=== PATIENT | female | born 1930 | race Caucasian/White ===

== ENCOUNTER 2017-06-07 22:02 | Emergency (ER) | payer MEDICARE, OTHER ==
[2017-06-07 23:37] LABS: #Eosinphils 0.1 thou/uL (0.0-0.7); #Lymphocytes 2.3 thou/uL (1.20-3.40); #Monocytes 0.6 thou/uL (0.11-0.59); #Neutrophils 3.9 thou/uL (1.40-6.50); %Basophils 0.4 % (0.0-1.0); %Eosinophils 1.3 % (0.0-10.0); %Lymphocytes 33.2 % (21.0-51.0); %Monocytes 8.4 % (0.0-10.0); %Neutrophils 56.8 % (42.0-75.0); Hemoglobin 12.4 g/dL (12.0-16.0); Mean Corpuscular HGB CONC 33.6 g/dL (32.0-36.0); Mean Corpuscular Hemoglobin 31.2 pg (27.0-31.0); Mean Corpuscular Volume 92.9 fl (81.0-99.0); Mean Platelet Volume 8.5 fL (7.4-10.4); Platelet Count 220 thou/uL (130-400); RBC Distribution Width 12.6 % (11.5-14.5); Red Blood Cell (RBC) Count 3.97 mill/uL (4.20-5.40); White Blood Cell (WBC) Count 6.9 thou/uL (4.8-10.8)
[2017-06-07 23:46] LABS: INR-International Normal Ratio 2.3; PTT 40.4 SEC (22.9-36.1)
[2017-06-08] MEDS ORDERED: Oxymetazoline HCl 0.05% ( 15 ML ) ONE (01:30)
[2017-06-08 01:52] LABS: Anion Gap 12 mmol/L (10-20); BUN (Urea Nitrogen) 28 mg/dL (9.8-20.1); Calc. Creatinine Clearance 0 mL/min (70-130); Calcium 10.3 mg/dL (7.8-10.44); Carbon Dioxide 27 mmol/L (23-31); Chloride 107 mmol/L (98-107); Estimated GFR-MDRD 37; Glucose 79 mg/dL (83-110); Potassium 4.3 mmol/L (3.5-5.1); Sodium 142 mmol/L (136-145)
== END 2017-06-08 02:09 | disposition home or self-care (01) ==
LOC: ERS 22:02
DX: R04.0 Epistaxis (principal); I11.0 Hypertensive heart disease with heart failure; I50.9 Heart failure, unspecified; I48.91 Unspecified atrial fibrillation; K21.9 Gastro-esophageal reflux disease without esophagitis; E78.5 Hyperlipidemia, unspecified; M81.0 Age-related osteoporosis without current pathological fracture; F41.9 Anxiety disorder, unspecified; F32.9 Major depressive disorder, single episode, unspecified
CPT/HCPCS: 36415; 80048; 85025; 85610; 85730; 99283

== ENCOUNTER 2018-10-17 18:25 | Emergency (ER) | payer MEDICARE, OTHER ==
--- NOTE | 2018-10-17 19:25 | RAD ---
EXAM: LEFT SHOULDER TWO VIEWS: 10/17/18 HISTORY: Injury from a fall. FINDINGS: There is a minimally comminuted considerably displaced fracture of the femoral neck with foreshorteni ng as well as glenohumeral joint dislocation. IMPRESSION: Comminuted fracture distal humeral head and neck with foreshortening. Evidence for glenohumeral joint dislocation. Bone demineralization. Healed left rib fractures. POS: [facility]
[2018-10-17 19:45] LABS: #Eosinphils 0.1 thou/uL (0.0-0.7); #Lymphocytes 1.5 thou/uL (1.20-3.40); #Monocytes 0.6 thou/uL (0.11-0.59); %Basophils 0.2 % (0.0-1.0); %Eosinophils 0.4 % (0.0-10.0); %Lymphocytes 11.2 % (21.0-51.0); %Monocytes 4.8 % (0.0-10.0); %Neutrophils 83.4 % (42.0-75.0); Hemoglobin 12.2 g/dL (12.0-16.0); Mean Corpuscular HGB CONC 34.8 g/dL (32.0-36.0); Mean Corpuscular Hemoglobin 32.1 pg (27.0-31.0); Mean Corpuscular Volume 92.4 fL (78.0-98.0); Platelet Count 235 thou/uL (130-400); RBC Distribution Width 13.3 % (11.5-14.5); Red Blood Cell (RBC) Count 3.79 mill/uL (4.20-5.40); White Blood Cell (WBC) Count 13.2 thou/uL (4.8-10.8)
[2018-10-17 19:49] LABS: INR-International Normal Ratio 2.1; PTT 33.1 SEC (22.9-36.1); Prothrombin Time 23.5 SEC (12.0-14.7)
--- NOTE | 2018-10-17 19:59 | CT ---
CT BRAIN WITHOUT CONTRAST: 10/17/18 HISTORY: Fall. Patient on Coumadin. Head trauma and pain. FINDINGS: Comparison is made with exam of 06/08/16. Changes of cortical atrophy and ventricular size is stable. No evidence of acute infarct, hemorrhage , midline shift, or abnormal extra-axial fluid collections are seen. The basilar cisterns are patent. The bony calvarium is intact. The visualized paranasal sinuses and mastoid air cells are well aerate d. IMPRESSION: No CT evidence of acute intracranial process. POS: [facility]
[2018-10-17 20:02] LABS: ALT (SGPT) 10 U/L (8-55); AST (SGOT) 19 U/L (5-34); Alkaline Phosphatase 71 U/L (40-150); Anion Gap 14 mmol/L (10-20); BUN (Urea Nitrogen) 24 mg/dL (9.8-20.1); Bilirubin, Total 0.5 mg/dL (0.2-1.2); Calc. Creatinine Clearance 0 mL/min (70-130); Calcium 10.2 mg/dL (7.8-10.44); Carbon Dioxide 21 mmol/L (23-31); Chloride 107 mmol/L (98-107); Estimated GFR-MDRD 29; Glucose 111 mg/dL (83-110); Potassium 4.2 mmol/L (3.5-5.1); Sodium 138 mmol/L (136-145)
[2018-10-17] MEDS ORDERED: Ondansetron PF 4 MG/2 ML Vial ONE (20:15)
[2018-10-17] MEDS ORDERED: Ketamine 50 MG/ML (10ML VIAL) ONE (20:15)
[2018-10-17] MEDS ORDERED: Morphine 4 MG/ML VIAL ONE (20:15)
--- NOTE | 2018-10-17 21:15 | RAD ---
PORTABLE LEFT SHOULDER ONE VIEW: 10/17/18 HISTORY: Post reduction fracture dislocation. FINDINGS/IMPRESSION: There has been interval reduction of the dislocation of the glenohumeral joint since earlier exam of 6:49 p.m. from the same day. Comminuted fracture of the proximal humerus is again seen. POS: [facility]
== END 2018-10-17 22:51 | disposition home or self-care (01) ==
LOC: ERS 18:25
DX: S42.202A Unspecified fracture of upper end of left humerus, initial encounter for closed fracture (principal); S00.83XA Contusion of other part of head, initial encounter; S80.212A Abrasion, left knee, initial encounter; I11.0 Hypertensive heart disease with heart failure; I50.9 Heart failure, unspecified; I49.9 Cardiac arrhythmia, unspecified; I48.91 Unspecified atrial fibrillation; K21.9 Gastro-esophageal reflux disease without esophagitis; E78.5 Hyperlipidemia, unspecified; E78.00 Pure hypercholesterolemia, unspecified; F41.9 Anxiety disorder, unspecified; F32.9 Major depressive disorder, single episode, unspecified; Z79.899 Other long term (current) drug therapy; Z79.82 Long term (current) use of aspirin; W01.0XXA Fall on same level from slipping, tripping and stumbling without subsequent striking against object, initial encounter
CPT/HCPCS: 23545; 36415; 70450; 80053; 85025; 85610; 85730; 96361; 96374; 96375; 99152; J2270; J2405